=== PATIENT | female | born 1980 | race Caucasian/White ===

== ENCOUNTER 2019-02-17 13:47 | Inpatient (IN) | payer MEDICAID ==
[2019-02-17] MEDS ORDERED: LACTATED RINGER'S 1,000 ML IV (16:38)
[2019-02-17] MEDS ORDERED: OXYTOCIN 30 UNITS/LR 500 ML IV ×3 (17:00)
[2019-02-17] MEDS ORDERED: BUTORPHANOL 2 MG INJ IV (17:00)
[2019-02-17] MEDS ORDERED: MISOPROSTOL 200 MCG TAB PR (17:00)
[2019-02-17] MEDS ORDERED: LIDOCAINE 1% (MPF) 30 ML INJ INJ (17:00)
[2019-02-17] MEDS ORDERED: MINERAL OIL LIGHT 10 ML VIAL TOP (17:00)
[2019-02-17] MEDS ORDERED: METHYLERGONOVINE 0.2 MG INJ IM (17:00)
[2019-02-17] MEDS ORDERED: OXYCODONE/ASPIRIN (4.88/325) TAB PO (17:00)
[2019-02-17] MEDS ORDERED: IBUPROFEN 600 MG TAB PO (17:00)
[2019-02-17] MEDS ORDERED: CARBOPROST 250 MCG INJ IM (17:00)
[2019-02-17] MEDS: LACTATED RINGER'S 1,000 ML IV (17:30)
[2019-02-17 17:40] LABS: ADD MAN DIFF? NO
[2019-02-17 17:45] LABS: BASOPHILS % 0.1 % (0.0-2.0); EOSINOPHILS # 0.1 10^3/ul (0.0-0.5); EOSINOPHILS % 0.7 % (0.0-7.0); HEMATOCRIT 33.7 % (37.0-47.0); HEMOGLOBIN 11.5 g/dl (12.0-16.0); LYMPHOCYTES # 1.4 10^3/ul (0.8-2.9); LYMPHOCYTES % 17.4 % (15.0-51.0); MEAN CORPUSCULAR HEMOGLOBIN 30.6 pg (29.0-33.0); MEAN CORPUSCULAR HGB CONC 34.1 g/dl (32.0-37.0); MEAN CORPUSCULAR VOLUME 89.6 fl (82.0-101.0); MEAN PLATELET VOLUME 12.8 fl (7.4-10.4); MONOCYTE # 0.5 10^3/ul (0.3-0.9); MONOCYTES % 6.5 % (0.0-11.0); NEUTROPHIL # 6.2 10^3/ul (1.6-7.5); NEUTROPHILS % 74.9 % (39.0-77.0); PLATELET COUNT 181 10^3/UL (140-415); RED BLOOD COUNT 3.76 10^6/ul (4.20-5.40); RED CELL DISTRIBUTION WIDTH 14.2 % (11.5-14.5)
[2019-02-17 17:45] LABS: WHITE BLOOD COUNT 8.3 10^3/ul (4.8-10.8)
[2019-02-17 18:06] LABS: INR 0.85; PROTIME 11.7 Sec (11.9-14.9); PT RATIO 0.9
[2019-02-17 18:07] LABS: PARTIAL THROMBOPLASTIN TIME 21.3 Sec (23.0-35.0)
[2019-02-17 18:39] LABS: HEPATITIS B SURFACE ANTIGEN NEGATIVE (NEGATIVE)
[2019-02-18] MEDS ORDERED: MINERAL OIL LIGHT 10 ML VIAL TOP
[2019-02-18] MEDS: LACTATED RINGER'S 1,000 ML IV ×3 (00:09→16:07)
[2019-02-18] MEDS: OXYTOCIN 30 UNITS/LR 500 ML IV (08:30)
[2019-02-18] MEDS: MISOPROSTOL 50 MCG CAPSULE PO ×2 (13:55→17:25)
[2019-02-18 20:19] LABS: RAPID PLASMA REAGIN NONREACTIVE (NR)
[2019-02-19] MEDS: MISOPROSTOL 50 MCG CAPSULE PO ×3 (00:01→10:13)
[2019-02-19] MEDS: LACTATED RINGER'S 1,000 ML IV ×2 (09:19)
== END 2019-02-19 17:19 | disposition home or self-care (01) | DRG 833 ==
LOC: OBT 13:47 → L-D 13:49 → OBT 16:10 → L-D 16:10
PROVIDERS: Obstetrics & Gynecology
DX: O47.1 False labor at or after 37 completed weeks of gestation (principal); Z3A.39 39 weeks gestation of pregnancy
CPT/HCPCS: 76815; 76818; 85025; 85610; 85730; 86592; 86850; 86900; 86901; 87340

== ENCOUNTER 2019-02-25 10:03 | Inpatient (IN) | payer MEDICAID ==
[2019-02-25] MEDS ORDERED: METHYLERGONOVINE 0.2 MG INJ IM (10:30)
[2019-02-25] MEDS ORDERED: LIDOCAINE 1% (MPF) 30 ML INJ INJ (10:30)
[2019-02-25] MEDS ORDERED: OXYTOCIN 30 UNITS/LR 500 ML IV ×2 (10:30)
[2019-02-25] MEDS ORDERED: BUTORPHANOL 2 MG INJ IV (10:30)
[2019-02-25] MEDS ORDERED: MINERAL OIL LIGHT 10 ML VIAL TOP (10:30)
[2019-02-25] MEDS ORDERED: IBUPROFEN 600 MG TAB PO (10:30)
[2019-02-25] MEDS ORDERED: MISOPROSTOL 200 MCG TAB PR (10:30)
[2019-02-25] MEDS ORDERED: CARBOPROST 250 MCG INJ IM (10:30)
[2019-02-25 10:53] LABS: ADD MAN DIFF? NO
[2019-02-25 10:59] LABS: WHITE BLOOD COUNT 7.1 10^3/ul (4.8-10.8)
[2019-02-25 10:59] LABS: BASOPHILS % 0.1 % (0.0-2.0); EOSINOPHILS # 0.1 10^3/ul (0.0-0.5); EOSINOPHILS % 1.3 % (0.0-7.0); HEMOGLOBIN 11.9 g/dl (12.0-16.0); LYMPHOCYTES # 1.5 10^3/ul (0.8-2.9); LYMPHOCYTES % 21.4 % (15.0-51.0); MEAN CORPUSCULAR HEMOGLOBIN 30.6 pg (29.0-33.0); MEAN PLATELET VOLUME 12.4 fl (7.4-10.4); MONOCYTE # 0.5 10^3/ul (0.3-0.9); MONOCYTES % 6.9 % (0.0-11.0); NEUTROPHIL # 4.9 10^3/ul (1.6-7.5); NEUTROPHILS % 69.5 % (39.0-77.0); PLATELET COUNT 170 10^3/UL (140-415); RED BLOOD COUNT 3.89 10^6/ul (4.20-5.40); RED CELL DISTRIBUTION WIDTH 14.1 % (11.5-14.5)
[2019-02-25] MEDS: LACTATED RINGER'S 1,000 ML IV ×2 (11:04→18:10)
[2019-02-25 11:17] LABS: INR 0.83; PROTIME 11.5 Sec (11.9-14.9); PT RATIO 0.9
[2019-02-25 11:18] LABS: PARTIAL THROMBOPLASTIN TIME 25.2 Sec (23.0-35.0)
[2019-02-25] MEDS: MISOPROSTOL 50 MCG CAPSULE PO ×2 (12:26→16:19)
[2019-02-25 14:20] LABS: HEPATITIS B SURFACE ANTIGEN NEGATIVE (NEGATIVE)
[2019-02-25] MEDS: CALCIUM CARBONATE 500 MG CHEW TAB PO (19:54)
[2019-02-25 22:09] LABS: RAPID PLASMA REAGIN NONREACTIVE (NR)
[2019-02-26] MEDS: LACTATED RINGER'S 1,000 ML IV ×4 (02:14→19:49)
[2019-02-26] MEDS: OXYTOCIN 30 UNITS/LR 500 ML IV ×2 (09:59→18:03)
[2019-02-26] MEDS: FENTAnyl 2MCG/ML-ROPIV 0.2% 100 ML BAG EPI (12:55)
[2019-02-26] MEDS ORDERED: ONDANSETRON 4 MG INJ IV (13:00)
[2019-02-26] MEDS ORDERED: NALOXONE (0.4 MG/ML) INJ IV (13:00)
[2019-02-26] MEDS ORDERED: DIPHENHYDRAMINE 50 MG INJ IV (13:00)
[2019-02-26] MEDS: KETOROLAC 30 MG INJ IV (19:50)
[2019-02-26] MEDS: ACETAMINOPHEN 500 MG TAB PO (19:53)
[2019-02-26] MEDS ORDERED: WITCH HAZEL/GLYCERIN PAD PR (21:30)
[2019-02-26] MEDS ORDERED: LANOLIN HPA 1 PKT TOP (21:30)
[2019-02-26] MEDS ORDERED: BENZOCAINE 20% 56 ML SPRAY TOP (21:30)
[2019-02-26] MEDS ORDERED: MISOPROSTOL 200 MCG TAB PR (21:30)
[2019-02-26] MEDS ORDERED: ZOLPIDEM 5 MG TAB PO (21:30)
[2019-02-26] MEDS ORDERED: METHYLERGONOVINE 0.2 MG INJ IM (21:30)
[2019-02-26] MEDS ORDERED: CARBOPROST 250 MCG INJ IM (21:30)
[2019-02-26] MEDS ORDERED: DIBUCAINE 1% 30 GM OINT TOP (21:30)
[2019-02-26] MEDS ORDERED: OXYTOCIN 30 UNITS/LR 500 ML IV (21:30)
[2019-02-26] MEDS ORDERED: HYDROCODONE/APAP (5/325) TAB PO (21:30)
[2019-02-26] MEDS: LACTATED RINGER'S 1,000 ML IV* (22:13)
[2019-02-27] MEDS: CEPHALEXIN 500 MG CAP PO ×5 (00:03→23:49)
[2019-02-27] MEDS: IBUPROFEN 600 MG TAB PO ×5 (00:03→23:49)
[2019-02-27] MEDS: LACTATED RINGER'S 1,000 ML IV* (06:29)
[2019-02-27 08:43] LABS: ADD MAN DIFF? NO
[2019-02-27 08:50] LABS: WHITE BLOOD COUNT 8.2 10^3/ul (4.8-10.8)
[2019-02-27 08:50] LABS: BASOPHILS % 0.2 % (0.0-2.0); EOSINOPHILS # 0.1 10^3/ul (0.0-0.5); EOSINOPHILS % 1.3 % (0.0-7.0); HEMATOCRIT 31.5 % (37.0-47.0); HEMOGLOBIN 10.6 g/dl (12.0-16.0); LYMPHOCYTES # 1.9 10^3/ul (0.8-2.9); LYMPHOCYTES % 22.8 % (15.0-51.0); MEAN CORPUSCULAR HEMOGLOBIN 30.4 pg (29.0-33.0); MEAN CORPUSCULAR HGB CONC 33.7 g/dl (32.0-37.0); MEAN CORPUSCULAR VOLUME 90.3 fl (82.0-101.0); MONOCYTE # 0.5 10^3/ul (0.3-0.9); MONOCYTES % 6.4 % (0.0-11.0); NEUTROPHIL # 5.7 10^3/ul (1.6-7.5); NEUTROPHILS % 68.9 % (39.0-77.0); PLATELET COUNT 146 10^3/UL (140-415); RED BLOOD COUNT 3.49 10^6/ul (4.20-5.40); RED CELL DISTRIBUTION WIDTH 14.4 % (11.5-14.5)
[2019-02-27] MEDS: SENNA/DOCUSATE NA (8.6MG/50MG) TAB PO ×2 (09:20→22:05)
[2019-02-27] MEDS: MAGNESIUM HYDROXIDE 30ML CUP PO ×2 (09:20→22:05)
[2019-02-27 11:41] LABS: RHOGAM PROFILE 1 1
[2019-02-28] MEDS: CEPHALEXIN 500 MG CAP PO ×2 (05:33→12:17)
[2019-02-28] MEDS: IBUPROFEN 600 MG TAB PO ×2 (05:33→12:17)
[2019-02-28] MEDS: SENNA/DOCUSATE NA (8.6MG/50MG) TAB PO (08:24)
[2019-02-28] MEDS: HYDROCODONE/APAP (5/325) TAB PO (08:24)
[2019-02-28] MEDS: MAGNESIUM HYDROXIDE 30ML CUP PO (08:24)
[2019-02-28] MEDS: MEASLES,MUMPS,RUBELLA VACCINE INJ SC* (09:00)
[2019-02-28] MEDS ORDERED: DIPHTH/TET/ACEL PERTUSS (ADULT) 0.5 ML VIAL IM* (09:00)
[2019-02-28] MEDS: VARICELLA VACCINE LIVE/PF 1,350 UNIT/0.5 ML ML SC* (09:00)
== END 2019-02-28 14:10 | disposition home or self-care (01) | DRG 998 ==
LOC: L-D 10:03 → PP1 02-26 21:00 → L-D 23:54
PROVIDERS: Obstetrics & Gynecology
PROC: 10E0XZZ Delivery of Products of Conception, External Approach (ICD-10-PCS; principal; 2019-02-26)
PROC: 0HQ9XZZ Repair Perineum Skin, External Approach (ICD-10-PCS; 2019-02-26)
PROC: 10907ZC Drainage of Amniotic Fluid, Therapeutic from Products of Conception, Via Natural or Artificial Opening (ICD-10-PCS; 2019-02-26)
DX: O69.81X0 Labor and delivery complicated by cord around neck, without compression, not applicable or unspecified (principal); O70.0 First degree perineal laceration during delivery; Z3A.40 40 weeks gestation of pregnancy
CPT/HCPCS: 62322; 76815; 85025; 85610; 85730; 86592; 86850; 86885; 86900; 86901; 87340; 90716